=== PATIENT | male | born 1955 ===

== ENCOUNTER 2020-03-24 10:00 | Inpatient (IN) | payer OTHER ==
[~2020-03-24] VITALS: Ht 170.2 cm; Wt 139.7 kg
[2020-03-24] MEDS ORDERED: HUMULIN 70100 UNIT/2 (16:20)
[2020-03-24] MEDS ORDERED: COZAAR100 MG PO (16:21)
[2020-03-24] MEDS ORDERED: LASIX40 MG PO (16:21)
[2020-03-24] MEDS ORDERED: METFORMIN HCL1000 M2 PO (16:21)
[2020-03-24] MEDS ORDERED: SIMVASTATIN40 MG PO (16:21)
[2020-03-24] MEDS ORDERED: CARVEDILOL25 M1 PO (16:22)
[2020-04-03] MEDS ORDERED: HYOSCYAMINE0.125 M1 SL (09:53)
[2020-04-03] MEDS ORDERED: INTESTINEX680 M1 PO (09:53)
[2020-04-03] MEDS ORDERED: PROTONIX40 MG PO (09:53)
[2020-04-03] MEDS ORDERED: OXYC1TAB9 PO (10:10)
== END 2020-04-03 11:42 | disposition home or self-care (01) | DRG 331 ==
LOC: O/R 03-31 06:05 → SURH 03-31 06:05
PROVIDERS: ADMIT Surgery; ATTEND Surgery
PROC: 07BC4ZX Excision of Pelvis Lymphatic, Percutaneous Endoscopic Approach, Diagnostic (ICD-10-PCS; 2020-03-31)
PROC: 0DTF4ZZ Resection of Right Large Intestine, Percutaneous Endoscopic Approach (ICD-10-PCS; principal; 2020-03-31 07:00)
DX: D12.2 Benign neoplasm of ascending colon (principal); E11.9 Type 2 diabetes mellitus without complications; E66.01 Morbid (severe) obesity due to excess calories; Z95.810 Presence of automatic (implantable) cardiac defibrillator; D69.6 Thrombocytopenia, unspecified; Z79.4 Long term (current) use of insulin